=== PATIENT | female | born 1965 | race Hispanic/Latino ===

== ENCOUNTER 2018-12-14 00:09 | Emergency (ER) | payer MEDICARE, OTHER ==
[~2018-12-14] VITALS: Ht 152.4 cm; Wt 90.7 kg
[2018-12-14 01:17] LABS: BASOPHILS % 0.5 % (0.0-1.0); EOSINOPHILS # (AUTO) 0.3 (0.0-0.4); EOSINOPHILS % 4.1 % (0.0-6.0); HEMATOCRIT 31.2 % (34.2-44.1); HEMOGLOBIN 10.1 g/dL (12.0-16.0); LYMPHOCYTES # (AUTO) 2.1 (1.0-3.2); LYMPHOCYTES % 25.5 % (18.0-39.1); MEAN CORPUSCULAR HEMOGLOBIN 27.9 pg (28-32); MEAN CORPUSCULAR HGB CONC 32.4 g/dL (31-35); MEAN CORPUSCULAR VOLUME 86.2 fL (81-99); MONOCYTES # (AUTO) 0.5 (0.2-0.8); MONOCYTES % 6.3 % (4.4-11.3); NEUTROPHILS # (AUTO) 5.2 (2.1-6.9); NEUTROPHILS % 62.9 % (38.7-80.0); PLATELET COUNT 312 x10e3/uL (140-360); RED BLOOD COUNT 3.62 x10e6/uL (3.6-5.1); RED CELL DISTRIBUTION WIDTH 13.8 % (11.7-14.4)
[2018-12-14 01:28] LABS: ALBUMIN 3.1 g/dL (3.5-5.0); ALBUMIN/GLOBULIN RATIO 0.8 (0.8-2.0); ANION GAP 12.9 mmol/L (8-16); CALCIUM 9.5 mg/dL (8.4-10.2); CREATININE, SERUM 1.06 mg/dL (0.57-1.11); POTASSIUM 3.9 mmol/L (3.5-5.1)
[2018-12-14] MEDS ORDERED: ACIDOPHILUS1 EAC1 PO (01:46)
[2018-12-14] MEDS ORDERED: CLINDAMYCIN HC300 MG PO (01:46)
--- NOTE | 2018-12-14 03:26 | Diagnostic Imaging Report ---
Left tib-fib radiographs 2 views HISTORY: Pain. COMPARISON: None available. FINDINGS: Bones: No acute displaced fracture. Osseous alignment is within normal limits. Joints: The joint spaces are well-maintained. Sclerotic changes and osteophytes in the ankle. Soft tissues: Vascular calcifications. IMPRESSION: No acute radiographic abnormality. Mild degenerative changes in the ankle. Signed by: Johnathan Bates DO on 12/14/2018 3:22 AM
== END 2018-12-14 02:40 ==
LOC: ER 00:09
DX: M79.605 Pain in left leg (principal); G89.29 Other chronic pain; Z86.718 Personal history of other venous thrombosis and embolism; Z86.711 Personal history of pulmonary embolism; Z79.02 Long term (current) use of antithrombotics/antiplatelets; I10 Essential (primary) hypertension; E11.9 Type 2 diabetes mellitus without complications; F17.210 Nicotine dependence, cigarettes, uncomplicated
CPT/HCPCS: 36415; 80053; 85025; 93971; 99283

== ENCOUNTER 2018-12-16 14:35 | Emergency (ER) | payer MEDICARE ==
[~2018-12-16] VITALS: Ht 152.4 cm; Wt 90.7 kg
[~2018-12-16 14:35] MED LIST: ACIDOPHILUS1 EAC1 PO; CLINDAMYCIN HC300 MG PO
--- OUTSIDE RECORDS SUMMARY | 2018-12-16 14:38 | XMS REPORT ---
Author [facility] Address Unknown Phone Unavailable Care Team Providers Care Patient Services Representative Name Role Phone Xavier PAIGE Unavailable Unavailable FATEMEH TOURE Unavailable Unavailable Problems This patient has no known problems. Allergies, Adverse Reactions, Alerts This patient has no known allergies or adverse reactions. Medications This patient has no known medications. Results Test Description Test Time Test Comments Text Results Atomic Results Result Comments LOWER LEG LEFT 2018-12-14 03:21:00 [facility] [address] [address] Patient Name: PRIYANKA GONZALEZ MR #: [id number] : 1965 Age/Sex: 53/F Req #: [id number] Adm Physician: Ordered by: TWIN PAIGE MD Report #: [id number] Location: ER Room/Bed: Procedure: [id number] DX/LOWER LEG LEFT Exam Date: 12/14/18 Exam Time: 0204 REPORT STATUS: Signed Left tib-fib radiographs 2 views HISTORY: Pain. COMPARISON: None available. FINDINGS: Bones: No acute displaced fracture. Osseous alignment is within normal limits. Joints: The joint spaces are well-maintained. Sclerotic changes and osteophytes in the ankle. Soft tissues: Vascular calcifications. IMPRESSION: No acute radiographic abnormality. Mild degenerative changes in the ankle. Signed by: Johnathan Bates DO on 12/14/2018 3:22 AM Dictated By: JOHNATHAN BATES DO 1 Transcribed By: ZENON on 12/14/18321 COPY TO: TWIN PAIGE MD Culture, Urine 2016-08-26 10:03:00 O:ESCOL (test code=ESCOL) Escherichia coli Amikacin (test code=AN) <=2 Ampicillin (test code=AMV) 8 Ampicillin/Sulbactam (test code=LEI) 4 Cefepime (test code=FEP) <=1 Ceftazidime (test code=CAZV) <=1 Ceftriaxone (test code=[employer]) <=1 Cefoxitin (test code=CFX) <=4 Ciprofloxacin (test code=CIP) <=0.25 Gentamicin (test code=GMV) <=1 Levofloxacin (test code=LEV) <=0.12 Meropenem (test code=MEM) <=0.25 Nitrofurantoin (test code=FT) <=16 Piperacillin/Tazobactam (test code=TZP) <=4 Tobramycin (test code=TM) <=1 Trimethoprim/Sulfamethoxazole (test code=SXTV) <=20 Culture, Urine (test code=URC) QUANTITATION: Culture, Urine (test code=URC1.1) >100,000 cfu/mL ESBL: -[id number] 02:07:00* Test Item Value Reference Range Comments Hematology (test code=WBCT) 16.5 thou/uL 4.8-10.8 Hematology (test code=RBCT) 3.95 mill/uL 4.20-5.40 Hematology (test code=HGBT) 12.3 g/dL 12.0-16.0 Hematology (test code=HCTT) 35.4 % 36.0-47.0 Hematology (test code=MCV) 89.6 fl 81.0-99.0 Hematology (test code=MCH) 31.0 pg 27.0-31.0 Hematology (test code=MCHC) 34.6 g/dL 32.0-36.0 Hematology (test code=RDW) 12.8 % 11.5-14.5 Hematology (test code=PLTT) 271 thou/uL 130-400 Hematology (test code=MPV) 7.2 fL 7.4-10.4 Hematology (test code=%NEUT) 77.0 % 42.0-75.0 Hematology (test code=%LYMPH) 15.0 % 21.0-51.0 Hematology (test code=%MONO) 5.8 % 0.0-10.0 Hematology (test code=%EOS) 1.3 % 0.0-10.0 Hematology (test code=%BASO) 0.9 % 0.0-1.0 Hematology (test code=NEUT#) 12.7 thou/uL 1.40-6.50 Hematology (test code=LYMPH#) 2.5 thou/uL 1.20-3.40 Hematology (test code=MONO#) 1.0 thou/uL 0.11-0.59 Hematology (test code=EOS#) 0.2 thou/uL 0.0-0.7 Hematology (test code=BASO#) 0.1 thou/uL 0.0-0.2 [id number] 02:06:00* Test Item Value Reference Range Comments Chemistry (test code=NA-T) 136 mmol/L 136-145 Chemistry (test code=K-T) 4.7 mmol/L 3.5-5.1 Chemistry (test code=CL) 99 mmol/L 98-107 Chemistry (test code=CO2) 24 mmol/L 22-29 Chemistry (test code=ANGP) 18 mmol/L 10-20 Chemistry (test code=BUN) 26 mg/dL 7.0-18.7 Chemistry (test code=CREATT) 1.34 mg/dL 0.6-1.1 Chemistry (test code=EGFRMDRD) 42 Reference Range for Estimated GFR: Greater than 90 mL/min/1.73 m2NOTE:The MDRD equation has not been validated for use with theelderly (over 70 years of age), women, patien tswith serious comorbid condition or persons with extremes ofbody size, muscle mass, or nutritional status. Chemistry (test code=GLU-T) 338 mg/dL 70-105 Chemistry (test code=CA) 9.7 mg/dL 7.8-10.44 Chemistry (test code=TBILI) 0.4 mg/dL 0.2-1.2 Chemistry (test code=TP) 7.9 g/dL 6.0-8.3 NOTE: Plasma values are generally 0.3 to 0.5 g/dL higherthan serum values due to the presence of fibrinogen. Chemistry (test code=ALB) 3.8 g/dL 3.5-5.0 Chemistry (test code=GLOB) 4.1 g/dL 2.4-3.5 Chemistry (test code=AG) 0.9 g/dL 1.2-2.2 Chemistry (test code=ALP) 96 U/L 40-150 Chemistry (test code=AST) 30 U/L 5-34 Chemistry (test code=ALT) 34 U/L 0-55 [id number] 02:05:00* Test Item Value Reference Range Comments Chemistry (test code=CRP) 4.18 mg/dL =or < 0.5 What test does the doctor want? C-REACTIVE PROTEIN (CRP)[id number] 00:59:00* Test Item Value Reference Range Comments Urinalysis (test code=UACLR) Yellow Yellow Urinalysis (test code=UACLY) Slightly Cloudy Clear Urinalysis (test code=SPGR) 1.025 1.005-1.030 Urinalysis (test code=PAMELA) 6.0 5.0-9.0 Urinalysis (test code=UALEU) Trace Negative Urinalysis (test code=UANIT) Negative Negative Urinalysis (test code=PROUADIP) Trace mg/dL Neg-Trace Urinalysis (test code=GLUCU) 500 mg/dL Negative Urinalysis (test code=KETU) Negative mg/dL Negative Urinalysis (test code=UAUROB) 0.2 mg/dL 0.2-1.0 Urinalysis (test code=UABIL) Negative Negative Urinalysis (test code=UABLD) Large Negative Urinalysis (test code=UARBC) 21-50 HPF 0-3 Urinalysis (test code=UAWBC) 21-50 HPF 0-3 Urinalysis (test code=UASQUAM) 0-3 HPF 0-3 Urinalysis (test code=UATRANS) 0-3 HPF 0-3 Urinalysis (test code=UARENAL) 0-3 HPF 0-3 Urinalysis (test code=UABAC) 4+ HPF None Seen Urinalysis (test code=UACAST) 4-6 HYALINE CAST LPF 0-3 Hyaline Urine Source: Urine Straight Catheter
--- NOTE | 2018-12-16 15:58 | Diagnostic Imaging Report ---
Chest radiograph, single portable view Clinical indication: Chest pain Comparison: None Findings: The heart is within normal limits size. The mediastinal and hilar contours are unremarkable. There is minimal bibasilar atelectasis. No focal consolidation, sizable, or pneumothorax. No acute osseous abnormalities. Impression: No radiographic evidence of acute cardiopulmonary process. Signed by: Andrew Stewart MD on 12/16/2018 3:54 PM
[2018-12-16 16:00] LABS: BASOPHILS % 0.4 % (0.0-1.0); EOSINOPHILS # (AUTO) 0.3 (0.0-0.4); EOSINOPHILS % 3.6 % (0.0-6.0); HEMATOCRIT 33.7 % (34.2-44.1); HEMOGLOBIN 10.9 g/dL (12.0-16.0); LYMPHOCYTES # (AUTO) 1.9 (1.0-3.2); LYMPHOCYTES % 21.6 % (18.0-39.1); MEAN CORPUSCULAR HEMOGLOBIN 27.8 pg (28-32); MEAN CORPUSCULAR HGB CONC 32.3 g/dL (31-35); MONOCYTES # (AUTO) 0.6 (0.2-0.8); MONOCYTES % 6.2 % (4.4-11.3); NEUTROPHILS % 67.5 % (38.7-80.0); PLATELET COUNT 320 x10e3/uL (140-360); RED BLOOD COUNT 3.92 x10e6/uL (3.6-5.1); RED CELL DISTRIBUTION WIDTH 13.8 % (11.7-14.4)
[2018-12-16 16:07] LABS: INR 0.96; PROTHROMBIN TIME 13.3 seconds (11.9-14.5)
[2018-12-16 16:08] LABS: PARTIAL THROMBOPLASTIN TIME 54.7 seconds (23.8-35.5)
[2018-12-16 16:16] LABS: ALANINE AMINOTRANSFERASE 10 IU/L (0-55); ALBUMIN 3.2 g/dL (3.5-5.0); ALBUMIN/GLOBULIN RATIO 0.8 (0.8-2.0); ALKALINE PHOSPHATASE 76 IU/L (40-150); BLOOD UREA NITROGEN 14 mg/dL (7-26); BUN/CREATININE RATIO 16 (6-25); CALCIUM 9.5 mg/dL (8.4-10.2); CARBON DIOXIDE 27 mmol/L (22-29); CHLORIDE 104 mmol/L (98-107); CREATINE KINASE 49 IU/L (29-168); CREATININE, SERUM 0.88 mg/dL (0.57-1.11); EST GLOMERULAR FILTRATION RATE > 60 ML/MIN (60-); GLUCOSE 166 mg/dL (74-118); SODIUM 139 mmol/L (136-145)
[2018-12-16 17:20] VITALS: BP 103/67
== END 2018-12-16 18:09 | disposition home or self-care (01) ==
LOC: ER 14:38
DX: R07.89 Other chest pain (principal)
CPT/HCPCS: 36415; 71045; 80053; 82550; 82553; 84484; 85025; 85610; 85730; 93005; 99284